=== PATIENT | female | born 1930 | race Caucasian/White ===

== ENCOUNTER 2020-12-05 23:05 | Inpatient (IN) | payer OTHER ==
[2020-12-05] MEDS ORDERED: SODIUM CHLORIDE 0.9% 500 ML INFUS.BAG IV ONE (23:45)
[2020-12-06 00:44] LABS: BASO % 0.6 % (0-2.0); EOS % 0.2 % (0-4.5); HEMATOCRIT 37.7 % (32.4-45.2); HEMOGLOBIN 12.8 GM/dL (10.7-15.3); LYMPH % 18.9 % (8-40); MCH 29.4 pg (25.7-33.7); MCHC 33.8 g/dl (32.0-36.0); MEAN CELL VOLUME 86.9 fl (80-96); MEAN PLT VOLUME 8.6 fl (7.5-11.1); NEUT % 74.3 % (42.8-82.8); PLATELET COUNT 264 K/MM3 (134-434); RBC 4.34 M/mm3 (3.60-5.2); RDW 14.1 % (11.6-15.6)
[2020-12-06 01:01] LABS: POTASSIUM 4.6 mmol/L (3.5-5.1)
[2020-12-06 01:03] LABS: CALCIUM 9.2 mg/dL (8.5-10.1)
[2020-12-06 01:04] LABS: ALBUMIN 3.1 g/dl (3.4-5.0); BLOOD UREA NITROGEN 12.9 mg/dL (7-18); MAGNESIUM 1.3 mg/dL (1.8-2.4)
[2020-12-06 01:07] LABS: BILIRUBIN,DIRECT 0.3 mg/dL (0.0-0.2)
[2020-12-06 01:08] LABS: BILIRUBIN,TOTAL 0.7 mg/dL (0.2-1); PHOSPHOROUS 2.2 mg/dL (2.5-4.9)
[2020-12-06 01:09] LABS: TOT PROT 6.8 g/dl (6.4-8.2)
[2020-12-06 01:12] LABS: N-TERMINAL BNP 347.5 pg/ml (5-450)
[2020-12-06] MEDS ORDERED: MAGNESIUM SULF 50% (8.12 MEQ/2 ML-1 GM VIAL) IVPB ONE (01:14)
[2020-12-06] MEDS ORDERED: NAPH,MB-DB/K PH,MBDB POWDER PACKET PO ONE (01:14)
[2020-12-06] MEDS ORDERED: DEXAMETHASONE SOD PHOSPHATE 4 MG/1 ML VIAL IVPUSH ONE (01:16)
[2020-12-06] MEDS ORDERED: DEXAMETHASONE SOD PHOSPHATE 4 MG/1 ML VIAL ONE ×2 (01:32→09:12)
[2020-12-06] MEDS ORDERED: MAGNESIUM 1GM/D5W - 1 GM/100 ML IVPB IVPB ONE (01:33)
[2020-12-06] MEDS ORDERED: NAPH,MB-DB/K PH,MBDB POWDER PACKET ONE (01:34)
[2020-12-06 01:45] LABS: INR 1.07 (0.83-1.09); PROTHROMBIN TIME (PATIENT) 13.1 SEC (9.7-13.0)
[2020-12-06 01:48] LABS: ACTIVATED PTT 25.8 SECONDS (25.2-36.5)
[2020-12-06] MEDS ORDERED: CEFTRIAXONE 1 GM in DEXTROSE 5%-WATER - 100 ML IVPB ONE (02:20)
[2020-12-06] MEDS ORDERED: AZITHROMYCIN IVPB 500 MG in DEXTROSE 5%-WATER - 250 ML IVPB ONE (02:20)
[2020-12-06] MEDS ORDERED: CEFTRIAXONE 1 GM/50 ML BAG ONE (02:32)
[2020-12-06] MEDS ORDERED: AZITHROMYCIN IVPB 500 MG/250 ML BAG IVPB ONE (02:33)
[2020-12-06] MEDS ORDERED: TRIMETHOBENZAMIDE HCL 300 MG CAPSULE PO ONE (03:54)
[2020-12-06] MEDS ORDERED: ALBUTEROL SO4 HFA INHALER IH PRN ×2 (04:32→06:06)
[2020-12-06] MEDS ORDERED: ALBUTEROL SO4 HFA INHALER IH ONE (05:07)
[2020-12-06] MEDS ORDERED: ALBUTEROL SO4 2.5/IPRATROPIUM 0.5 INH SOL 3 ML VIAL.NEB. NEB ONE ×2 (06:06→06:09)
[2020-12-06] MEDS: INSULIN SLIDING SCALE (NOVOLOG) 1 VIAL SQ SCH ×3 (07:45→16:29)
[2020-12-06] MEDS ORDERED: INSULIN (LEVEMIR) 100 UNITS/ML UNITS SQ SCH (08:00)
[2020-12-06] MEDS ORDERED: amLODIPine BESYLATE 5 MG TABLET (FP) ONE (09:12)
[2020-12-06] MEDS ORDERED: SPIRONOLACTONE 25 MG TABLET ONE (09:12)
[2020-12-06] MEDS ORDERED: ENOXAPARIN NA (PORCINE) 40 MG/0.4 ML DISP.SYRIN SQ ONE (09:12)
[2020-12-06] MEDS ORDERED: FAMOTIDINE 20 MG/50 ML IVPB 20 MG/50 ML MG IVPB ONE (09:13)
[2020-12-06] MEDS ORDERED: INSULIN (LEVEMIR) 100 UNITS/ML UNITS SQ ONE (09:16)
[2020-12-06] MEDS: amLODIPine BESYLATE 10 MG TABLET (FP) PO SCH (09:28)
[2020-12-06] MEDS: DEXAMETHASONE SOD PHOSPHATE 10 MG/1 ML VIAL IVPUSH SCH (09:28)
[2020-12-06] MEDS: FAMOTIDINE 20 MG/50 ML IVPB 20 MG/50 ML MG IVPB SCH ×2 (09:29→22:09)
[2020-12-06] MEDS ORDERED: PANTOPRAZOLE 40 MG TABLET PO SCH (10:00)
[2020-12-06] MEDS ORDERED: SPIRONOLACTONE 25 MG TABLET PO SCH (10:00)
[2020-12-06] MEDS ORDERED: ENOXAPARIN NA (PORCINE) 40 MG/0.4 ML DISP.SYRIN SQ SCH (10:00)
[2020-12-06] MEDS ORDERED: FUROSEMIDE 20 MG TABLET (FP) PO SCH (10:00)
[2020-12-06 15:15] LABS: HEMATOCRIT 37.7 % (32.4-45.2); HEMOGLOBIN 12.9 GM/dL (10.7-15.3); MCH 29.8 pg (25.7-33.7); MCHC 34.1 g/dl (32.0-36.0); MEAN CELL VOLUME 87.5 fl (80-96); MEAN PLT VOLUME 8.2 fl (7.5-11.1); PLATELET COUNT 260 K/MM3 (134-434); RBC 4.31 M/mm3 (3.60-5.2); RDW 13.7 % (11.6-15.6); WHITE BLOOD COUNT 4.8 K/mm3 (4.0-10.0)
[2020-12-06 15:33] LABS: POTASSIUM 4.6 mmol/L (3.5-5.1)
[2020-12-06 15:35] LABS: CALCIUM 9.3 mg/dL (8.5-10.1)
[2020-12-06 15:36] LABS: MAGNESIUM 1.8 mg/dL (1.8-2.4)
[2020-12-06 15:39] LABS: PHOSPHOROUS 2.2 mg/dL (2.5-4.9)
[2020-12-06 15:40] LABS: BILIRUBIN,TOTAL 0.5 mg/dL (0.2-1)
[2020-12-06] MEDS ORDERED: REMDESIVIR 200 MG in SODIUM CHLORIDE 210 ML IVPB ONE (16:00)
[2020-12-06 17:32] LABS: EPI CELLS 22 /uL (0-25.1); HYALINE CASTS 2 /uL (0-3.1); PH,URINE 5.5 (5.0-8.0); URINE APPEARANCE CLOUDY; URINE BACTERIA >9,000 /uL (0-1359); URINE BILIRUBIN NEGATIVE (NEGATIVE); URINE COLOR YELLOW; URINE GLUCOSE (UA) 1+ (NEGATIVE); URINE KETONE NEGATIVE (NEGATIVE); URINE LEUK ESTERASE NEGATIVE (NEGATIVE); URINE NITRITE POSITIVE (NEGATIVE); URINE PROTEIN 1+ (NEGATIVE); URINE UROBILINOGEN 0.2 mg/dL (0.2-1.0); URINE WBC 15 /uL (0-25.8)
[2020-12-06 20:34] VITALS: BMI 37.6
[2020-12-06] MEDS: ENOXAPARIN NA (PORCINE) 40 MG/0.4 ML DISP.SYRIN SQ SCH (22:08)
[2020-12-07] MEDS: INSULIN SLIDING SCALE (NOVOLOG) 1 VIAL SQ SCH ×3 (06:42→16:37)
[2020-12-07] MEDS: INSULIN (LEVEMIR) 100 UNITS/ML UNITS SQ SCH (06:43)
[2020-12-07] MEDS ORDERED: PT OWN MED DRAWER 7, Y5N ONE (09:01)
[2020-12-07] MEDS: amLODIPine BESYLATE 10 MG TABLET (FP) PO SCH (09:06)
[2020-12-07] MEDS: ENOXAPARIN NA (PORCINE) 40 MG/0.4 ML DISP.SYRIN SQ SCH ×2 (09:06→21:17)
[2020-12-07] MEDS: DEXAMETHASONE SOD PHOSPHATE 10 MG/1 ML VIAL IVPUSH SCH (09:08)
[2020-12-07] MEDS: FAMOTIDINE 20 MG/50 ML IVPB 20 MG/50 ML MG IVPB SCH ×2 (09:08→21:17)
[2020-12-07] MEDS: DEXAMETHASONE SOD PHOSPHATE 4 MG/1 ML VIAL IVPUSH SCH (09:34)
[2020-12-07 09:49] LABS: HEMATOCRIT 39.1 % (32.4-45.2); HEMOGLOBIN 13.3 GM/dL (10.7-15.3); MCH 29.6 pg (25.7-33.7); MCHC 33.9 g/dl (32.0-36.0); MEAN CELL VOLUME 87.4 fl (80-96); MEAN PLT VOLUME 8.4 fl (7.5-11.1); PLATELET COUNT 328 K/MM3 (134-434); RBC 4.48 M/mm3 (3.60-5.2)
[2020-12-07 10:08] LABS: POTASSIUM 4.8 mmol/L (3.5-5.1)
[2020-12-07 10:19] LABS: ALBUMIN 3.2 g/dl (3.4-5.0); BLOOD UREA NITROGEN 21.2 mg/dL (7-18)
[2020-12-07 10:22] LABS: CALCIUM 9.8 mg/dL (8.5-10.1)
[2020-12-07 10:28] LABS: CREATININE 0.8 mg/dL (0.55-1.3)
[2020-12-07 10:31] LABS: TOT PROT 6.9 g/dl (6.4-8.2)
[2020-12-07 10:47] LABS: BILIRUBIN,TOTAL 0.6 mg/dL (0.2-1)
[2020-12-07] MEDS ORDERED: REMDESIVIR 100 MG in SODIUM CHLORIDE 230 ML IVPB SCH (12:00)
[2020-12-07] MEDS: REMDESIVIR 100 MG in SODIUM CHLORIDE 230 ML IVPB SCH (16:29)
[2020-12-08] MEDS: INSULIN SLIDING SCALE (NOVOLOG) 1 VIAL SQ SCH ×3 (06:43→16:50)
[2020-12-08] MEDS: INSULIN (LEVEMIR) 100 UNITS/ML UNITS SQ SCH (06:44)
[2020-12-08] MEDS ORDERED: guaiFENesin/D-M SUGAR-FREE/ACLHOL-FREE 118 ML BOTTLE PO PRN (08:31)
[2020-12-08] MEDS ORDERED: guaiFENesin/D-M SUGAR-FREE/ACLHOL-FREE 5 ML UNIT DOSE PO PRN (09:11)
[2020-12-08] MEDS: ENOXAPARIN NA (PORCINE) 40 MG/0.4 ML DISP.SYRIN SQ SCH ×2 (10:06→23:59)
[2020-12-08] MEDS: amLODIPine BESYLATE 10 MG TABLET (FP) PO SCH (10:06)
[2020-12-08] MEDS: FAMOTIDINE 20 MG/50 ML IVPB 20 MG/50 ML MG IVPB SCH ×2 (10:07→23:59)
[2020-12-08] MEDS: DEXAMETHASONE SOD PHOSPHATE 4 MG/1 ML VIAL IVPUSH SCH (11:09)
[2020-12-08] MEDS: REMDESIVIR 100 MG in SODIUM CHLORIDE 230 ML IVPB SCH (17:40)
[2020-12-09] MEDS: INSULIN (LEVEMIR) 100 UNITS/ML UNITS SQ SCH ×3 (06:26→09:40)
[2020-12-09] MEDS: INSULIN SLIDING SCALE (NOVOLOG) 1 VIAL SQ SCH ×4 (06:27→23:40)
[2020-12-09] MEDS ORDERED: PT OWN MED DRAWER 7, Y5N ONE (09:02)
[2020-12-09] MEDS: DEXAMETHASONE SOD PHOSPHATE 4 MG/1 ML VIAL IVPUSH SCH (09:06)
[2020-12-09] MEDS: ENOXAPARIN NA (PORCINE) 40 MG/0.4 ML DISP.SYRIN SQ SCH ×2 (09:07→21:36)
[2020-12-09] MEDS: FAMOTIDINE 20 MG/50 ML IVPB 20 MG/50 ML MG IVPB SCH ×2 (09:08→21:36)
[2020-12-09] MEDS: amLODIPine BESYLATE 10 MG TABLET (FP) PO SCH (09:08)
[2020-12-09 10:29] LABS: HEMATOCRIT 40.8 % (32.4-45.2); MCHC 34.3 g/dl (32.0-36.0); MEAN CELL VOLUME 87.3 fl (80-96); MEAN PLT VOLUME 7.9 fl (7.5-11.1); PLATELET COUNT 485 K/MM3 (134-434); RBC 4.67 M/mm3 (3.60-5.2); RDW 13.9 % (11.6-15.6); WHITE BLOOD COUNT 9.5 K/mm3 (4.0-10.0)
[2020-12-09 10:43] LABS: POTASSIUM 4.5 mmol/L (3.5-5.1)
[2020-12-09 10:46] LABS: ALBUMIN 3.1 g/dl (3.4-5.0); BLOOD UREA NITROGEN 29.6 mg/dL (7-18); MAGNESIUM 1.9 mg/dL (1.8-2.4)
[2020-12-09 10:49] LABS: PHOSPHOROUS 2.7 mg/dL (2.5-4.9)
[2020-12-09 10:51] LABS: BILIRUBIN,TOTAL 0.6 mg/dL (0.2-1); CALCIUM 9.8 mg/dL (8.5-10.1); TOT PROT 7.5 g/dl (6.4-8.2)
[2020-12-09] MEDS ORDERED: INSULIN (NOVOLOG) ASPART 100 UNITS/ML 10ML VIAL ONE (11:45)
[2020-12-09] MEDS ORDERED: INSULIN (LEVEMIR) 100 UNITS/ML UNITS SQ ONE (12:11)
[2020-12-09] MEDS: REMDESIVIR 100 MG in SODIUM CHLORIDE 230 ML IVPB SCH (16:45)
[2020-12-10] MEDS: INSULIN SLIDING SCALE (NOVOLOG) 1 VIAL SQ SCH ×2 (06:20→12:34)
[2020-12-10] MEDS: INSULIN (LEVEMIR) 100 UNITS/ML UNITS SQ SCH (06:40)
[2020-12-10] MEDS ORDERED: SPIRONOLACTONE 25 MG TABLET PO SCH (10:00)
[2020-12-10] MEDS ORDERED: FUROSEMIDE 20 MG TABLET (FP) PO SCH (10:00)
[2020-12-10] MEDS: ENOXAPARIN NA (PORCINE) 40 MG/0.4 ML DISP.SYRIN SQ SCH (10:59)
[2020-12-10] MEDS: FAMOTIDINE 20 MG/50 ML IVPB 20 MG/50 ML MG IVPB SCH (10:59)
[2020-12-10] MEDS: amLODIPine BESYLATE 10 MG TABLET (FP) PO SCH (10:59)
[2020-12-10] MEDS ORDERED: REMDESIVIR 100 MG in SODIUM CHLORIDE 230 ML IVPB ONE (12:00)
[2020-12-10] MEDS: DEXAMETHASONE SOD PHOSPHATE 4 MG/1 ML VIAL IVPUSH SCH (12:39)
[2020-12-10 14:47] VITALS: BP 137/71; PULSE 92; TEMP 98.2
== END 2020-12-10 15:11 | disposition home or self-care (01) | DRG 177 ==
LOC: JER 23:05 → JERBED 12-06 02:23 → J5S 12-06 18:54
PROVIDERS: ADMIT Hospitalist; ATTEND Internal Medicine
PROC: XW13325 Transfusion of Convalescent Plasma (Nonautologous) into Peripheral Vein, Percutaneous Approach, New Technology Group 5 (ICD-10-PCS; principal; 2020-12-07)
PROC: XW033E5 Introduction of Remdesivir Anti-infective into Peripheral Vein, Percutaneous Approach, New Technology Group 5 (ICD-10-PCS; 2020-12-07)
DX: U07.1 COVID-19 (principal); J96.01 Acute respiratory failure with hypoxia; J12.82 Pneumonia due to coronavirus disease 2019; I50.20 Unspecified systolic (congestive) heart failure; I11.0 Hypertensive heart disease with heart failure; E11.9 Type 2 diabetes mellitus without complications; E83.42 Hypomagnesemia; E83.39 Other disorders of phosphorus metabolism; E86.9 Volume depletion, unspecified; R00.0 Tachycardia, unspecified
CPT/HCPCS: 36415; 36430; 71045-TC-FY; 71250-TC; 80053; 81003; 82248; 82550; 82728; 82962; 83036; 83605; 83615; 83735; 83880; 84100; 84484; 85025; 85027; 85379; 85610; 85730; 86140; 86850; 86900; 86901; 87040; 87086; 87804; 87899; 93005; 93010; 94010; 94761; 97116-GP; 97161-GP; 99285-25; C9399; C9803; J1100; P9017; U0003